=== PATIENT | male | born 1955 | race Caucasian/White ===

== ENCOUNTER 2019-07-06 13:58 | Emergency (ER) | payer SELFPAY ==
[2019-07-06 14:16] VITALS: BP 108/66; Wt 61.8 kg
[2019-07-06] MEDS ORDERED: KEPPRA500 MG PO (14:18)
[2019-07-06] MEDS ORDERED: KLONOPIN1 MG PO (14:18)
== END 2019-07-06 15:09 | disposition left against medical advice (07) ==
LOC: D.ER 13:58
DX: Z76.0 Encounter for issue of repeat prescription (principal)

== ENCOUNTER 2019-07-20 07:48 | Emergency (ER) | payer MEDICAID ==
[~2019-07-20] VITALS: Ht 185.4 cm; Wt 63.6 kg
[~2019-07-20 07:48] MED LIST: KEPPRA500 MG PO; KLONOPIN1 MG PO
[2019-07-20 07:53] VITALS: Ht 185.4 cm; Wt 63.6 kg
[2019-07-20] MEDS ORDERED: PROVENTIL/2.5 MG/3 M INH (07:56)
[2019-07-20 08:12] LABS: BASOPHILS 0.6 % (0-2); EOSINOPHILS 9.4 % (0-7); HEMATOCRIT 43.7 % (42.0-54.0); HEMOGLOBIN 15.4 g/dL (13.5-17.5); IMMATURE GRANULOCYTES 0.1 % (0-5); LYMPHOCYTES 22.1 % (15-50); MCH 33.1 pg (26.0-34.0); MCHC 35.2 g/dL (31.0-37.0); MONOCYTES 11.8 % (2-11); PLATELET COUNT 226 10x3/uL (130-400); RBC 4.65 10x6/uL (4.20-6.10); RDW 12.7 % (11.5-14.5); WBC 6.8 10x3/uL (4.8-10.8)
[2019-07-20 08:26] LABS: APPEARANCE CLEAR (CLEAR); BILIRUBIN NEGATIVE (NEGATIVE); COLOR STRAW (YELLOW); GLUCOSE NEGATIVE (NEGATIVE); KETONE NEGATIVE (NEGATIVE); NITRITE NEGATIVE (NEGATIVE); PROTEIN NEGATIVE (NEGATIVE); SPECIFIC GRAVITY 1.005 (1.005-1.020); UROBILINOGEN NORMAL (NORMAL)
[2019-07-20 08:26] LABS: ALBUMIN 3.8 g/dL (3.4-5.0); ALKALINE PHOSPHATASE 98 U/L (46-116); ALT (SGPT) 40 U/L (10-68); BILIRUBIN - TOTAL 0.57 mg/dL (0.2-1.3); CALC OSMOLALITY 280 mosm/kg (275-300); CALCIUM 8.7 mg/dL (8.5-10.1); CARBON DIOXIDE 29.2 mmol/L (21.0-32.0); CHLORIDE - SERUM 105 mmol/L (98-107); CREATININE - SERUM 0.9 mg/dL (0.6-1.3); GLUCOSE 91 mg/dL (74-106); POTASSIUM - SERUM 4.7 mmol/L (3.5-5.1); PROTEIN - SERUM 6.6 g/dL (6.4-8.2); SODIUM 141 mmol/L (136-145); UREA NITROGEN 12 mg/dL (7-18); eGFR NON AFRICAN AMERICAN > 90 mL/min (90-120)
[2019-07-20] MEDS ORDERED: MEDROL DOSE PACK4 MG PO ×2 (09:06→09:11)
[2019-07-20] MEDS ORDERED: ZPAK PO (09:06)
[2019-07-20] MEDS ORDERED: ALBUTEROL SULF8.5 GM INH (09:11)
[2019-07-20 09:39] VITALS: BP 106/68
== END 2019-07-20 09:40 | disposition home or self-care (01) ==
LOC: D.ER 07:48
PROVIDERS: Family Medicine
DX: J20.9 Acute bronchitis, unspecified (principal); J44.9 Chronic obstructive pulmonary disease, unspecified